=== PATIENT | male | born 1995 | race Caucasian/White ===

== ENCOUNTER 2023-01-24 12:15 | Emergency (ER) | payer OTHER ==
[2023-01-24 12:23] VITALS: BP 125/80; PULSE 67; RESP 18; TEMP 98.2; BMI 29.9
[2023-01-24] MEDS ORDERED: IBUPROFEN 600 MG TABLET (FP) PO ONE ×2 (13:21)
== END 2023-01-24 13:22 | disposition home or self-care (01) ==
LOC: JERFT 12:15
DX: S60.051A Contusion of right little finger without damage to nail, initial encounter (principal); W20.8XXA Other cause of strike by thrown, projected or falling object, initial encounter; Y99.0 Civilian activity done for income or pay
CPT/HCPCS: 73140-TC-RT-FY; 99283-25

== ENCOUNTER 2023-06-03 19:04 | Emergency (ER) | payer OTHER ==
[2023-06-03 19:23] VITALS: BP 131/85; PULSE 73; RESP 18; TEMP 98.5; BMI 30.8
[2023-06-03] MEDS ORDERED: KETOROLAC TROMETHAMINE 30 MG/1 ML VIAL IM ONE (21:11)
[2023-06-03] MEDS ORDERED: ACETAMINOPHEN 500 MG TABLET (FP) PO ONE (21:11)
[2023-06-03] MEDS ORDERED: ACETAMINOPHEN 500 MG TABLET (FP) ONE (21:25)
[2023-06-03] MEDS ORDERED: KETOROLAC TROMETHAMINE 30 MG/1 ML VIAL ONE ×2 (21:25→21:29)
[2023-06-03] MEDS ORDERED: ACETAMINOPHEN 325 MG TABLET (FP) ONE (21:29)
== END 2023-06-03 22:54 | disposition home or self-care (01) ==
LOC: JERFT 19:04 → JER 19:04 → JERFT 22:54
PROC: 3E0233Z Introduction of Anti-inflammatory into Muscle, Percutaneous Approach (ICD-10-PCS; principal; 2023-06-03)
DX: M25.571 Pain in right ankle and joints of right foot (principal); R22.41 Localized swelling, mass and lump, right lower limb; S93.401A Sprain of unspecified ligament of right ankle, initial encounter; X50.1XXA Overexertion from prolonged static or awkward postures, initial encounter; Y92.812 Truck as the place of occurrence of the external cause
CPT/HCPCS: 73610-TC-RT-FY; 99284-25

== ENCOUNTER 2024-01-07 15:41 | Emergency (ER) | payer OTHER ==
[2024-01-07 15:59] VITALS: BP 122/79; PULSE 65; RESP 18; TEMP 98; BMI 30.8
== END 2024-01-07 17:12 | disposition home or self-care (01) ==
LOC: JERFT 15:41 → JER 15:41 → JERFT 17:12
DX: Z20.3 Contact with and (suspected) exposure to rabies (principal)
CPT/HCPCS: 99281-25

== ENCOUNTER 2024-02-24 20:27 | Emergency (ER) | payer OTHER ==
[2024-02-24 20:50] VITALS: BP 140/85; PULSE 78; RESP 18; TEMP 98.6; BMI 32.3
[2024-02-24] MEDS ORDERED: NAPROXEN 500 MG TABLET ONE (21:06)
[2024-02-24] MEDS: NAPROXEN 500 MG TABLET PO ONE (21:08)
== END 2024-02-24 21:44 | disposition home or self-care (01) ==
LOC: JER 20:27
DX: M79.642 Pain in left hand (principal); M25.531 Pain in right wrist; W10.8XXA Fall (on) (from) other stairs and steps, initial encounter; Y99.0 Civilian activity done for income or pay
CPT/HCPCS: 73110-TC-LT-FY; 73110-TC-RT-FY; 73130-TC-LT-FY; 73130-TC-RT-FY; 99284-25